=== PATIENT | female | born 1975 | race Caucasian/White ===

== ENCOUNTER → 2020-08-15 08:11 | Outpatient (BNVA) | payer MEDICARE, MEDICAID, SELFPAY | PROVIDERS: PCP Internal Medicine; Referring Provider Internal Medicine; Visit Provider Surgery | DX: E66.9 Obesity, unspecified (principal); Z68.39 Body mass index [BMI] 39.0-39.9, adult; Z71.3 Dietary counseling and surveillance | CPT/HCPCS: 99212; Q3014 ==

== ENCOUNTER → 2020-09-21 07:53 | Outpatient (BNVA) | payer MEDICARE, MEDICAID, SELFPAY | PROVIDERS: PCP Internal Medicine; Referring Provider Internal Medicine; Visit Provider Surgery | DX: Z76.89 Persons encountering health services in other specified circumstances (principal) ==

== ENCOUNTER → 2020-10-23 08:20 | Outpatient (BNVA) | payer MEDICARE, MEDICAID, SELFPAY | PROVIDERS: PCP Internal Medicine; Visit Provider Dietitian, Registered | DX: Z76.89 Persons encountering health services in other specified circumstances (principal) ==

== ENCOUNTER → 2020-11-21 08:22 | Outpatient (BNVA) | payer MEDICARE, MEDICAID, SELFPAY | PROVIDERS: PCP Internal Medicine; Visit Provider Dietitian, Registered ==

== ENCOUNTER 2022-06-17 08:11 | Emergency (ER) | payer OTHER, SELFPAY ==
[2022-06-17 08:20] VITALS: BP 128/56; PULSE 68; RESP 14; TEMP 36.6; O2SAT 99
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
[2022-06-17 08:34] VITALS: BP 109/67; PULSE 50
[2022-06-17 08:53] LABS: MANUAL DIFF FLAG NO
[2022-06-17 08:58] LABS: Basophils Absolute Auto 0.1 X10*3/uL (0.0-0.2); Basophils Percent Auto 0.8 % (0-2); Eosinophils Absolute Auto 0.2 X10*3/uL (0.0-0.4); Eosinophils Percent Auto 2.6 % (0-4); Hematocrit 36.8 % (37.0-47.0); Hemoglobin 12.1 g/dl (12.0-16.0); Imm Gran Abs Auto 0.02 X10*3/uL (0.00-0.03); Imm Gran Pct Auto 0.3 % (0.0-0.4); Lymphocytes Absolute Auto 1.3 X10*3/uL (1.2-4.9); Lymphocytes Percent Auto 20.2 % (20-40); Mean Corpuscular HGB Conc 32.9 g/dl (31.0-35.0); Mean Corpuscular Hemoglobin 29.2 pg (27.0-33.0); Mean Corpuscular Volume 88.7 fL (80.0-98.0); Mean Platelet Volume 8.9 fL (9.4-12.3); Monocytes Absolute Auto 0.4 X10*3/uL (0.1-1.2); Monocytes Percent Auto 6.5 % (2-11); Neutrophils Absolute Auto 4.5 x10*3/uL (2.0-8.3); Neutrophils Percent Auto 69.6 % (45-73); Platelet Count 359 X10*3/uL (160-400); Red Blood Count 4.15 X10*6/uL (4.20-5.50); Red Cell Distribution Width 13.9 % (11.0-16.0); White Blood Count 6.5 X10*3/uL (4.8-10.8)
[2022-06-17 09:03] LABS: INTERNATIONAL NORM RATIO 1.3 (0.9-1.1); Prothrombin Time 15.5 SEC (10.0-13.1)
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
[2022-06-17 09:09] LABS: Ethanol < 10 mg/dL
[2022-06-17 09:11] LABS: COVID-19 Test Negative (Negative); IDNOW Serial# 9DB6401D
[2022-06-17 09:12] LABS: Alanine Aminotransferase 10 U/L (0-31); Alkaline Phosphatase 69 U/L (39-117); Anion Gap 15 (12-20); Aspartate Amino Transferase 14 U/L (5-31); Bilirubin Direct 0.2 mg/dL (0.0-0.5); Bilirubin Total 0.4 mg/dL (0.0-1.0); Blood Urea Nitrogen 10 mg/dL (9-16); Calcium 8.8 mg/dL (8.4-10.2); Carbon Dioxide 23 mmol/L (22-29); Chloride 104 mmol/L (96-108); Creatinine Clr Calc Pharmacy 97.4; Estimated Glomerular Filt Rate > 60; Glucose Random 120 mg/dL (60-115); Lipase 22 U/L (8-78); Magnesium 1.9 mg/dL (1.6-2.6); Potassium 3.7 mmol/L (3.3-5.1); Sodium 138 mmol/L (135-145); Total Protein 6.6 g/dL (6.5-8.0)
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
== END 2022-06-17 10:03 | disposition left against medical advice (07) ==
LOC: HO.ED 09:36
PROVIDERS: Emergency Provider Emergency Medicine
DX: Z04.1 Encounter for examination and observation following transport accident (principal); Z20.822 Contact with and (suspected) exposure to COVID-19; R40.0 Somnolence
CPT/HCPCS: 36415; 80048; 80076; 82077; 83690; 83735; 85025; 85610; 87635; 99283; 99284

== ENCOUNTER 2022-06-18 07:34 | Emergency (ER) | payer SELFPAY ==
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
[2022-06-18 07:42] VITALS: BP 112/66; PULSE 55; RESP 18; TEMP 36.9; O2SAT 98; BMI 28.5
[2022-06-18 08:09] VITALS: BP 124/78; PULSE 46; RESP 20; O2SAT 96
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
--- NOTE | 2022-06-18 08:23 | ECG_ITS ---
Test Reason : Bradycardia Blood Pressure : / mmHG Vent. Rate : 045 BPM Atrial Rate : 045 BPM P-R Int : 150 ms QRS Dur : 074 ms QT Int : 558 ms P-R-T Axes : 001 049 058 degrees QTc Int : 482 ms Sinus bradycardia Prolonged QT Abnormal ECG When compared with ECG of 10-JAN-2020 22:26, T wave amplitude has increased in Anterior leads QT has lengthened Heart rate has decreased Referred By: Lacey Eastman Electronically Signed By:NAY LAW
[2022-06-18 08:54] LABS: Appearance Urine Cloudy; Color Urine Yellow; Glucose Urine UA Negative (Negative); Leukocyte Esterase Urine Small (1+) (Negative); Nitrite Urine Negative (Negative); Specific Gravity - Urine <= 1.005 (1.005-1.025); Urine Blood Negative (Negative); Urine Ketones Negative (Negative); Urine Protein Negative (Neg-Trace)
[2022-06-18 08:55] LABS: UPreg QC Valid YES; Urine Pregnancy NEGATIVE (NEGATIVE)
[2022-06-18 09:16] LABS: Amphetamine Screen Urine POSITIVE (Not Detect); Barbiturates, Urine Not Detected (Not Detect); Benzodiazepines Screen Urine Not Detected (Not Detect); Cannabinoid Screen Urine POSITIVE (Not Detect); Cocaine Screen Urine Not Detected (Not Detect); Fentanyl, urine POSITIVE (Not Detect); Opiate Screen Urine Not Detected (Not Detect); Phencyclidine Screen Urine Not Detected (Not Detect)
[2022-06-18 09:27] VITALS: BP 142/81; PULSE 67; RESP 14; TEMP 36.4; O2SAT 98
[2022-06-18 10:20] LABS: Bacteria Urine 2+ (None Seen); Hyaline Casts Urine 0-2 /LPF (0-2); UACC Culture Trigger YES
[2022-06-18 11:27] VITALS: PULSE 46; RESP 21; TEMP 36.4
--- NOTE | 2022-06-18 11:32 | PC.NURSE ---
patient awoke, yelling at staff saying we have not done anything for her since she has been here and is demanding pain medications. states she would like to leave so she can go buy pain meds off the street. APPELLATE CONFEREE at bedside. encouraged patient not leave to buy pain meds off the street and to stay so imaging could be done to further assess pain. patient not agreeable, continued to yell at staff, security came to escort patient out.
== END 2022-06-18 11:39 | disposition home or self-care (01) ==
PROVIDERS: Nurse Practitioner Family; Emergency Provider Emergency Medicine
DX: M25.512 Pain in left shoulder (principal); R00.1 Bradycardia, unspecified; M54.2 Cervicalgia; R51.9 Headache, unspecified; M25.511 Pain in right shoulder; F17.210 Nicotine dependence, cigarettes, uncomplicated; Z79.899 Other long term (current) drug therapy; Z71.6 Tobacco abuse counseling
CPT/HCPCS: 70450; 72125; 80307; 81001; 81025; 87086; 87147; 93005; 99284